=== PATIENT | male | born 1990 | race African-American/Black ===

== ENCOUNTER 2020-12-16 04:45 | Emergency (ER) | payer SELFPAY ==
[~2020-12-16] VITALS: Ht 177.8 cm; Wt 90.8 kg
[2020-12-16] MEDS ORDERED: DEXAMETHASONE 4 MG TABLET PO ONE (05:00)
[2020-12-16] MEDS ORDERED: ALBU2.5V8 IH (05:08)
[2020-12-16] MEDS ORDERED: PRED20TA PO (05:08)
--- NOTE | 2020-12-16 05:09 | PHYS DOC ---
Past History Past Medical History: Asthma Past Surgical History: No Surgical History Smoking: Non-smoker Alcohol Use: Rarely Drug Use: Marijuana General Adult EDM: Chief Complaint: ASTHMA HPI: HPI: 30-year-old male presents with report of dyspnea and wheezing that started at approximately 0100 this morning. Denies any fever or chills. Patient does have history of asthma and reports symptoms similar to an "asthma attack ". Reports he has a slight cough which he reports is what happens when he is trying to open his airways. Denies known exposure to COVID-19. Denies receiving COVID-19 vaccination. Denies trauma. Denies other complaint. Review of Systems: Review of Systems: Constitutional: Denies fever or chills Eyes: Denies redness or eye pain HENT: Denies nasal congestion or sore throat Respiratory: Reports cough, wheezing, and shortness of breath Cardiovascular: Denies chest pain or palpitations GI: Denies abdominal pain, nausea, or vomiting : Denies dysuria or hematuria Musculoskeletal: Denies back pain or joint pain Integument: Denies rash or skin lesions Neurologic: Denies headache, focal weakness or sensory changes Complete systems were reviewed and found to be within normal limits, except as documented in this note. Current Medications: Current Meds: Current Medications Medications (Trade) Dose Ordered Sig/Kingsley Start Time Stop Time Status Last Admin Dose Admin Dexamethasone (Decadron) 10 mg 1X ONCE 12/16/20 05:00 12/16/20 05:01 UNV Physical Exam: PE: Constitutional: Well developed, well nourished, no acute distress, non-toxic appearance HENT: Normocephalic, atraumatic Eyes: Conjunctiva normal, no discharge Neck: Normal range of motion, supple Lungs & Thorax: No respiratory distress, equal chest rise and fall, diminished breath sounds, expiratory wheezing noted Abdomen: Soft, no tenderness Skin: Warm, dry, no erythema, no rash Extremities: No tenderness, ROM intact, no edema Neurologic: Alert and oriented X 3, no focal deficits noted Psychologic: Affect normal, judgment normal Current Patient Data: Vital Signs: Vital Signs Date Time Temp Pulse Resp B/P (MAP) Pulse Ox O2 Delivery O2 Flow Rate FiO2 12/16/20 05:00 97.7 84 22 148/95 (112) 97 Room Air EKG: EKG: [] Radiology/Procedures: Radiology/Procedures: [] Heart Score: C/O Chest Pain: N/A Course & Med Decision Making: Course & Med Decision Making Pertinent Imaging studies reviewed. (See chart for details) Patient presents with HPI and physical exam consistent for asthma attack. Symptomatic treatment provided with DuoNeb treatment as well as oral steroid. Chest x-ray without acute process. Patient with interval improvement of symptoms. Patient stable for discharge with outpatient follow-up with PCP. Discussed findings and plan with patient, who acknowledges understanding and agreement. Thee Disclaimer: Thee Disclaimer: This electronic medical record was generated, in whole or in part, using a voice recognition dictation system. Departure Departure: Impression: Primary Impression: Asthma exacerbation Qualified Codes: J45.21 - Mild intermittent asthma with (acute) exacerbation Disposition: HOME / SELF CARE / HOMELESS Condition: STABLE Patient Instructions: Asthma, Adult, [id number] Scripts Albuterol Sulfate (ALBUTEROL SULFATE NEB SOLN ) 2.5 Mg/3 Ml Vial.neb 1 VIAL NEB PRN Q4HRS PRN for WHEEZING, #50 VIAL Prov: ALICIA OVALLE DO 12/16/20 Prednisone (PREDNISONE) 20 Mg Tablet 2 TAB PO DAILY for Asthma, #8 TAB Start this prescription tomorrow, Friday12/17/20 Prov: ALICIA OVALLE DO 12/16/20 Albuterol Sulfate (PROAIR HFA INHALER) 8.5 Gm Hfa.aer.ad 2 PUFF IH PRN Q4-6HRS PRN for wheezing, #1 INHALER 0 Refills Prov: ALICIA OVALLE DO 12/16/20 ALICIA OVALLE DO Dec 16, 2020 05:09
[2020-12-16] MEDS ORDERED: IPRATRPIUM/ALBUTEROL 0.5/2.5MG 3 ML NEBU. NEB ONE ×2 (05:15→06:00)
[2020-12-16 05:25] VITALS: BP 148/95
[2020-12-16] MEDS ORDERED: ALBU2.5V5 NEB (05:34)
--- NOTE | 2020-12-16 06:48 | RAD ---
EXAM: CHEST ONE VIEW. HISTORY: Cough, shortness of breath. COMPARISON: None. FINDINGS: A frontal view of the chest is obtained. There are no confluent infiltrates. There is no pneumothorax or pleural effusion. The heart is not en larged. IMPRESSION: 1. No confluent infiltrates. Electronically signed by: Brook Fierro MD (12/16/2020 6:45 AM) [facility]
== END 2020-12-16 06:05 | disposition home or self-care (01) ==
LOC: ER 04:45
DX: J45.21 Mild intermittent asthma with (acute) exacerbation (principal)
CPT/HCPCS: 71045; 94640; 99284; J8540

== ENCOUNTER 2021-07-10 02:17 | Emergency (ER) | payer SELFPAY ==
[~2021-07-10] VITALS: Ht 177.8 cm; Wt 90.8 kg
[~2021-07-10 02:17] MED LIST: ALBU2.5V5 NEB; ALBU2.5V8 IH; PRED20TA PO
--- NOTE | 2021-07-10 02:32 | PHYS DOC ---
Past History Past Medical History: Asthma Past Surgical History: No Surgical History Smoking: Non-smoker Alcohol Use: Rarely Drug Use: Marijuana General Adult EDM: Chief Complaint: DIARRHEA HPI: HPI: ".. My daughter got sick .. with same stuff I got.... she was sick Friday thru.. Friday.. I got sick Friday.. Vomiting.. 4 or more times a day.. Diarrhea 14 times to day. ..." Patient is a 30 year old male who presents with above hx and complaints multiple episodes of nausea, generalized abdomen discomfort, vomiting and diarrhea. No history of bad food intake. Has had exposure to his younger daughter who has had a gastroenteritis. Patient not had flu vaccination but did have COVID vaccination with Moderna x 2. No recent travel. No history immunosuppression. Patient has not followed with primary care. No history of trauma. Review of Systems: Review of Systems: Constitutional: Denies fever or chills Eyes: Denies change in visual acuity HENT: Denies nasal congestion or sore throat Respiratory: Denies cough or shortness of breath Cardiovascular: Denies chest pain or edema GI: Complains of abdominal pain, nausea, vomiting, and diarrhea : Denies dysuria Musculoskeletal: Denies back pain or joint pain Integument: Denies rash Neurologic: Denies headache, focal weakness or sensory changes Endocrine: Denies polyuria or polydipsia Lymphatic: Denies swollen glands Psychiatric: Denies depression or anxiety Family History: Family History: Daughter has gastroenteritis Current Medications: Current Meds: See nursing for home meds Allergies: Allergies: Allergies Coded Allergies Type Severity Reaction Last Updated Verified No Known Drug Allergies 12/16/20 No Physical Exam: PE: Constitutional: Well developed, well nourished, moderate acute distress, non- toxic appearance. [] HENT: Normocephalic, atraumatic, bilateral external ears normal, oropharynx dry, no oral exudates, nose normal. [] Eyes: PERRLA, EOMI, conjunctiva normal, no discharge. [] Neck: Normal range of motion, no tenderness, supple, no stridor. [] Cardiovascular. Tachycardia:Heart rate regular rhythm, no murmur [] Lungs & Thorax: Bilateral breath sounds equal apex few scattered wheeze auscultation [] Abdomen: Bowel sounds hyperactive, soft, generalized tenderness, no masses, no pulsatile masses. [] No focal areas of rebound. Mild distention. Skin: Warm, dry, no erythema, no rash. Tattoos. Back: No tenderness, no CVA tenderness. [] Extremities: No tenderness, no cyanosis, no clubbing, ROM intact, no edema. No psoas sign. Neurologic: Alert and oriented X 3, normal motor function, normal sensory function, no focal deficits noted. [] Psychologic: Affect anxious, mood normal. [] EKG: EKG: [] Radiology/Procedures: Radiology/Procedures: [] Heart Score: C/O Chest Pain: N/A Risk Factors: Risk Factors: DM, Current or recent (<one month) smoker, HTN, HLP, family history of CAD, obesity. Risk Scores: Score 0 - 3: 2.5% MACE over next 6 weeks - Discharge Home Score 4 - 6: 20.3% MACE over next 6 weeks - Admit for Clinical Observation Score 7 - 10: 72.7% MACE over next 6 weeks - Early Invasive Strategies Course & Med Decision Making: Course & Med Decision Making Pertinent Labs and Imaging studies reviewed. (See chart for details) Pt. decline xrays, ekg and labs. Wished to be treated clinically. Patient stay on a clear fluid diet only for the next 48 hours. No solids. No milk products. Must allow bowel rest push fluids such as apple juice, grape juice, popsicles, 7-Up, Pedialyte, Gatorade, sweet tea,. Take Zofran 8 mg up to 4 times a day for active nausea and vomiting. May take Pepto-Bismol as per [id number] box instructions. Follow-up primary care. Return if any concerns. Impression: 1. Acute Gastroenteritis 2. Viral Syndrome 3. Dehydration 4. Marijuana and Tobacco Use [] Dragon Disclaimer: Dragon Disclaimer: This electronic medical record was generated, in whole or in part, using a voice recognition dictation system. Departure Departure: Referrals: PCP,GREG (PCP) Scripts Ondansetron (ONDANSETRON ODT) 8 Mg Tab.rapdis 8 MG PO QIDPRN PRN for NAUSEA/VOMITING, #30 TAB Prov: JAMIE VICKERS MD 07/10/21 Thee Disclaimer This chart was dictated in whole or in part using Voice Recognition software in a busy, high-work load, and often noisy Emergency Department environment. It may contain unintended and wholly unrecognized errors or omissions. Dragon Disclaimer This chart was dictated in whole or in part using Voice Recognition software in a busy, high-work load, and often noisy Emergency Department environment. It may contain unintended and wholly unrecognized errors or omissions. JAMIE VICKERS MD Jul 10, 2021 02:32
[2021-07-10] MEDS ORDERED: FAMOTIDINE 20 MG/2 ML VIAL IVP ONE (02:45)
[2021-07-10] MEDS ORDERED: ONDANSETRON PF 4 MG/2 ML VIAL. IVP ONE (02:45)
[2021-07-10] MEDS ORDERED: IV RINGERS SOLUTION,LACTATED 1,000 ML IV SCH (02:45)
[2021-07-10] MEDS ORDERED: KETOROLAC 30 MG/ML VIAL. IVP ONE (02:45)
[2021-07-10] MEDS ORDERED: ONDANSETRON ODT 4 MG TAB.RAPDIS ONE (02:53)
[2021-07-10] MEDS ORDERED: ONDANSETRON ODT 4 MG TAB.RAPDIS PO ONE (03:00)
[2021-07-10] MEDS ORDERED: KETOROLAC 60 MG/2 ML VIAL. IM ONE (03:00)
[2021-07-10] MEDS ORDERED: ONDA8TAB15 PO (03:14)
[2021-07-10 04:05] LABS: INFLUENZA A PATIENT NEGATIVE (NEGATIVE); INFLUENZA B PATIENT NEGATIVE (NEGATIVE)
[2021-07-10 05:30] VITALS: BP 128/72
[2021-07-10 05:49] LABS: BARBITURATES NEG (NEG); BENZODIAZEPINES NEG (NEG); CANNABINOIDS POS (NEG); CLARITY,URINE CLOUDY; COCAINE NEG (NEG); COLOR,URINE YELLOW; GLUCOSE,URINE NEG (NEG); METHADONE NEG (NEG); OPIATES NEG (NEG); PHENCYCLIDINE NEG (NEG)
[2021-07-10 05:50] LABS: AMORPHOUS SEDIMENT,UR PRESENT /HPF; BACTERIA,URINE 0 /HPF (0-FEW); NITRITE,URINE NEG (NEG); RBC,URINE 0 /HPF (0-2); UROBILINOGEN,URINE 0.2 mg/dL (0.2 mg/dL); WBC,URINE RARE /HPF (0-4)
[2021-07-10 05:51] LABS: AMPHETAMINE/METHAMPHETAMINE NEG (NEG)
== END 2021-07-10 05:50 | disposition home or self-care (01) ==
LOC: ER 02:17
DX: K52.9 Noninfective gastroenteritis and colitis, unspecified (principal); B34.9 Viral infection, unspecified; E86.0 Dehydration; J45.909 Unspecified asthma, uncomplicated; F12.10 Cannabis abuse, uncomplicated; Z20.822 Contact with and (suspected) exposure to COVID-19; Z72.0 Tobacco use
CPT/HCPCS: 36415; 80307; 81001; 87428; 96372; 99283; J1885; J7120; Q0162